=== PATIENT | male | born 1950 | race Caucasian/White ===

== ENCOUNTER 2016-05-05 23:33 | Emergency (ER) | payer MEDICARE ==
[~2016-05-05 23:33] MED LIST: Sodium Chloride 0.9% 1,000 ML BAG ONE
[2016-05-06] MEDS ORDERED: Ketorolac Tromethamine 60 MG/2 ML VIAL ONE (00:01)
[2016-05-06] MEDS ORDERED: Ondansetron HCl/PF 4 MG/2 ML Vial ONE (00:01)
[2016-05-06 00:02] LABS: #Basophils 0.1 thou/uL (0.0-0.2); #Eosinphils 0.2 thou/uL (0.0-0.7); #Lymphocytes 1.5 thou/uL (1.20-3.40); #Monocytes 0.5 thou/uL (0.11-0.59); #Neutrophils 6.9 thou/uL (1.40-6.50); %Basophils 0.7 % (0.0-1.0); %Eosinophils 2.7 % (0.0-10.0); %Monocytes 5.8 % (0.0-10.0); %Neutrophils 74.8 % (42.0-75.0); Hemoglobin 13.2 g/dL (14.0-18.0); Mean Corpuscular HGB CONC 35.5 g/dL (32.0-36.0); Mean Corpuscular Volume 87.5 fl (80.0-94.0); Mean Platelet Volume 6.4 fL (7.4-10.4); Platelet Count 216 thou/uL (130-400); RBC Distribution Width 11.4 % (11.5-14.5); Red Blood Cell (RBC) Count 4.27 mill/uL (4.70-6.10); White Blood Cell (WBC) Count 9.2 thou/uL (4.8-10.8)
[2016-05-06 00:07] LABS: Bilirubin Negative (Negative); Blood, Urine Moderate (Negative); Glucose, Urine (Dipstick) Negative (Negative); Leukocyte Negative (Negative); Nitrite Negative (Negative); Protein, Urine (Dipstick) Negative (Neg-Trace); Urobilinogen 0.2 mg/dL (0.2-1.0)
[2016-05-06 00:11] LABS: Clarity Hazy (Clear)
[2016-05-06 00:12] LABS: Bacteria/HPF Rare-Few HPF (None Seen); RBC/HPF 21-50 HPF (0-3); Specific Gravity, Urine 1.024 (1.002-1.036); WBC/HPF 0-3 HPF (0-3)
[2016-05-06 00:17] LABS: ALT (SGPT) 37 U/L (0-55); AST (SGOT) 23 U/L (5-34); Albumin 4.1 g/dL (3.4-4.8); Alkaline Phosphatase 75 U/L (40-150); Amylase 31 U/L (25-125); Anion Gap 16 mmol/L (10-20); BUN (Urea Nitrogen) 14 mg/dL (8.4-25.7); Bilirubin, Total 0.3 mg/dL (0.2-1.2); Calc. Creatinine Clearance 0 mL/min (70-130); Calcium 9.2 mg/dL (7.8-10.44); Carbon Dioxide 25 mmol/L (23-31); Chloride 102 mmol/L (98-107); Estimated GFR-MDRD 59; Globulin 3.1 g/dL (2.4-3.5); Glucose 138 mg/dL (80-115); Lipase 12 U/L (8-78); Potassium 4.1 mmol/L (3.5-5.1); Protein, Total 7.2 g/dL (5.8-8.1); Sodium 139 mmol/L (136-145)
[2016-05-06] MEDS ORDERED: Lorazepam 2 MG/ML VIAL ONE (01:13)
--- NOTE | 2016-05-06 02:24 | ERRECORD ---
[facility] EMERGENCY RECORD HPI ABDOMINAL PAIN (23:59 LLDO) CHIEF COMPLAINT: Patient presents for evaluation of abdominal pain, Patient presents for evaluation of see triage note. pain in llq was sudden and severe from the outset. nausea but no vomiting. rad up the flank some. no diarrhea. had normal bm earlier today. no trauma. no personal or family hx of k. stones. HISTORIAN: History provided by patient, History provided by patient's spouse. LOCATION MALE: Symptoms are localized, Radiation, No migration of pain. QUALITY: Pain is dull in nature, described as aching, described as cramping, described as BECOMES SHARP WITH MOVEMENT OR PALPATION. SEVERITY: Maximum severity of symptoms severe, Currently symptoms are severe. TIME COURSE: Sudden onset of symptoms, Symptoms are constant, There has been no change in the patient's symptoms over time. ASSOCIATED WITH: No associated symptoms, Associated with loss of appetite, Associated with nausea, No associated urinary tract infection signs or symptoms. RELIEVED BY: Patient's condition relieved by nothing. EXACERBATED BY: Patient's condition exacerbated by movement, Patient's condition exacerbated by walking, Patient's condition exacerbated by PALPATION. RISK FACTORS MALE: Testicular torsion risk factors, not applicable for this patient, Abdominal aortic aneurysm risk factors, include age over 40 years, Coronary artery disease risk factors, include hypertension. ROS CONSTITUTIONAL: Historian reports fatigue. (SatMay 06, 2016 00:05 LLDO) EYES: Negative eye review of systems, Historian denies eye pain, denies eye redness, denies eye discharge. ([place] May 06, 2016 00:10 LLDO) ENT: Negative ears, nose, throat review of systems, Historian denies otalgia, denies rhinorrhea, denies sinus pain, denies sore throat. (SatMay 06, 2016 00:10 LLDO) CARDIOVASCULAR: Negative cardiovascular review of systems, Historian denies chest pain, no radiation, Historian denies diaphoresis, denies paroxysmal nocturnal dyspnea, denies syncope. (SatMay 06, 2016 00:10 LLDO) RESPIRATORY: Negative respiratory review of systems, Historian denies cough, denies shortness of breath, denies sputum. ([place] May 06, 2016 00:10 LLDO) GI: Historian reports abdominal pain, reports anorexia, reports appetite changes, denies constipation, denies diarrhea, denies hematemesis, denies hematochezia, denies jaundice, denies melena, reports nausea, denies stool changes, denies vomiting. (SatMay 06, 2016 &a-1R&a+25V*p+0X*x5362J*c202B*c15G*c2P*p-0X&a-25V&a+1R Name: Giovanni Hairston : 1950 M66 MedRec: [id number] AcctNum: [id number] Prepared: SatMay 06, 2016 18:53 by Interface Page 1 of 5 pMD [facility] EMERGENCY RECORD 00:05 LLDO) GENITOURINARY MALE: Negative genitourinary review of systems. (SatMay 06, 2016 00:05 LLDO) MUSCULOSKELETAL: Negative musculoskeletal review of systems, Historian denies arthralgias, denies fall, denies injury, denies myalgias. (SatMay 06, 2016 00:10 LLDO) NEUROLOGIC: Negative neurologic review of systems, Historian denies confusion, denies focal weakness, denies mental status changes, denies sensory changes. (SatMay 06, 2016 00:10 LLDO) HEMO/LYMPHATIC: Normal hematologic/lymphatic system review, Historian denies abnormal blood clotting, denies gum bleeding, denies petechiae. (SatMay 06, 2016 00:10 LLDO) ALLERGIC/IMMUNOLOGIC: Normal allergy/immunologic system review, Historian denies eczema, denies environmental allergies, denies food allergies. (SatMay 06, 2016 00:10 LLDO) PSYCHIATRIC: Negative psychiatric review of systems, Historian denies alcohol abuse, denies anxiety, denies depression, denies drug abuse, denies hallucinations. (SatMay 06, 2016 00:10 LLDO) NOTES: All systems reviewed, negative except as described above. (SatMay 06, 2016 00:05 LLDO) PAST MEDICAL HISTORY MEDICAL HISTORY: Notes: chronic back pain. (SatMay 06, 2016 01:02 JDEA) MALE SURGICAL HISTORY: back surgery x 13. (SatMay 06, 2016 01:02 JDEA) PSYCHIATRIC HISTORY: No previous psychiatric history. (SatMay 06, 2016 01:02 JDEA) SOCIAL HISTORY: Patient denies alcohol use, Patient denies drug use, Patient has no smoking history, Lives at home, with family. (SatMay 06, 2016 01:02 JDEA) NOTES: Nursing records reviewed, Agree with nursing records, Medication list reviewed. (SatMay 06, 2016 00:10 LLDO) KNOWN ALLERGIES codeine CURRENT MEDICATIONS morphine: TABLET, EXTENDED RELEASE : Strength - 15 mg : ORAL Patient Dose: 15 mg Oral 3 times a day. (23:53 JDEA) gabapentin: CAPSULE : Strength - 300 mg : ORAL Patient Dose: 1 tab(s) Oral 2 times a day (before meals). (23:54 JDEA) Champlain: TABLET : Strength - 7.5 mg-325 mg : ORAL Patient Dose: 1 tab(s) Oral every 8 hours PRN. (23:54 JDEA) VITAL SIGNS &a-1R&a+25V*p+0X*g7193R*c202B*c15G*c2P*p-0X&a-25V&a+1R Name: Giovanni Hairston : 1950 M66 MedRec: [id number] AcctNum: [id number] Prepared: SatMay 06, 2016 18:53 by Interface Page 2 of 5 pMD [facility] EMERGENCY RECORD VITAL SIGNS: BP: 176/66, Pulse: 63, Resp: 20, Pain: 10, O2 sat: 94 on Room Air, Time: 05/05/2016 23:39. (23:39 JDEA) BP: 176/66, Pulse: 63, Resp: 20, Temp: 98 (Oral), Pain: 10, O2 sat: 94 on Room Air, Time: 05/05/2016 23:55. (23:55 JDEA) BP: 172/68, Pulse: 68, Resp: 16, Pain: 4, O2 sat: 98 on Room Air, Time: 05/06/2016 01:25. (SatMay 06, 2016 01:25 JDEA) PHYSICAL EXAM CONSTITUTIONAL: Vital Signs Reviewed, Patient afebrile, Pulse normal, Blood pressure, BP ELEVATED, Respiratory rate normal, Patient appears non toxic, Patient appears, in severe pain distress, Patient alert and oriented to person, place and time, Nursing notes reviewed, pt writhing about and moaning loudly. laid down in the front yard and didn't want to move. now refusing to move at all for radiology. (SatMay 06, 2016 00:06 LLDO) HEAD: Head exam normal, Head exam included findings of head atraumatic, normocephalic. (SatMay 06, 2016 00:10 LLDO) EYES: Eye exam normal, Eye exam included findings of eyelids normal to inspection, Pupils equally round and reactive to light, Extraocular muscles intact. (SatMay 06, 2016 00:10 LLDO) ENT: ENT exam normal, Ear exam normal, Nose exam normal. (SatMay 06, 2016 00:10 LLDO) NECK: Neck exam normal, Neck exam included findings of normal range of motion, Trachea midline, no meningeal signs, no tenderness. (SatMay 06, 2016 00:10 LLDO) RESPIRATORY CHEST: Respiratory and chest exam normal, Respiratory exam included findings of no respiratory distress, Breath sounds clear, Chest exam included findings of chest movement symmetrical, Chest expansion equal. (SatMay 06, 2016 00:10 LLDO) CARDIOVASCULAR: Cardiovascular assessment normal, Cardiovascular exam included findings of heart rate regular rate and rhythm, Heart sounds normal. (SatMay 06, 2016 00:10 LLDO) ABDOMEN MALE: Abdominal exam included findings of abdomen tender, to the left lower quadrant, into left flank, Bowel sounds normal, Liver with, Splenomegaly present, no distension, no mass, no pulsatile masses, McBurney's point non-tender, no peritoneal signs. (SatMay 06, 2016 00:06 LLDO) BACK: Back exam normal, Back exam included findings of normal inspection, range of motion normal. (SatMay 06, 2016 00:10 LLDO) UPPER EXTREMITY: Upper extremity exam normal, Upper extremity exam included findings of inspection normal, Range of motion normal. (SatMay 06, 2016 00:10 LLDO) LOWER EXTREMITY: Lower extremity exam normal, Lower extremity exam included findings of inspection normal, Range of motion normal. (SatMay 06, 2016 00:10 LLDO) NEURO: Neuro exam normal, Neuro exam findings include patient oriented to person, place and time, Speech normal, Patricia coma scale 15. ([place] May 06, 2016 00:10 LLDO) &a-1R&a+25V*p+0X*z0710X*c202B*c15G*c2P*p-0X&a-25V&a+1R Name: Giovanni Hairston : 1950 M66 MedRec: [id number] AcctNum: [id number] Prepared: SatMay 06, 2016 18:53 by Interface Page 3 of 5 pMD [facility] EMERGENCY RECORD SKIN: Skin exam normal, Skin exam included findings of skin warm, dry, and normal in color, no rash. (SatMay 06, 2016 00:10 LLDO) PSYCHIATRIC: Psychiatric exam normal, Psychiatric exam included findings of patient oriented to person place and time, Normal affect, Judgment normal. (SatMay 06, 2016 00:10 LLDO) MEDICATION ADMINISTRATION SUMMARY Drug Name: Duramorph (PF), Dose Ordered: 4 mg, Route: IV Push, Status: Given, Time: 01:25 05/06/2016, Drug Name: Ativan injection, Dose Ordered: 0.5 mg, Route: IV Push, Status: Given, Time: 01:24 05/06/2016, Drug Name: Duramorph (PF), Dose Ordered: 4 mg, Route: IV Push, Status: Given, Time: 01:09 05/06/2016, Drug Name: Toradol injection, Dose Ordered: 30 mg, Route: IV Push, Status: Given, Time: 00:09 05/06/2016, Drug Name: *sodium chloride 0.9 % intravenous, Dose Ordered: 1 L, Route: IV Fluid Infusion, Status: Given, Time: 00:08 05/06/2016, Drug Name: Zofran intravenous, Dose Ordered: 8 mg, Route: IV Push, Status: Given, Time: 00:06 05/06/2016, *Additional information available in notes, Detailed record available in Medication Service section. DOCTOR NOTES TEXT: pain "slightly better" after toradol but still very uncomfortable and asking for more relief. (SatMay 06, 2016 00:28 LLDO) pt finally relatively pain free and has declined my offer of admission or transfer. wants to go home and see if he can manage at home. if not, will come back or go straight to [facility] for f/u with urologist. (SatMay 06, 2016 01:54 LLDO) PROBLEM LIST No recorded problems DIAGNOSIS (SatMay 06, 2016 01:57 LLDO) FINAL: PRIMARY: Ureteral stone and colic, left. PRESCRIPTION (SatMay 06, 2016 01:59 LLDO) Champlain: TABLET : 10 mg-325 mg : ORAL : Quantity: 1 Unit: tab(s) Route: ORAL Schedule: every 4 hours prn Dispense: 24 Unit: tab(s) May substitute. Refills: No Refills . Zofran ODT: TABLET, RAPID DISSOLVE : 4 mg : ORAL : Quantity: 1-2 Unit: tab(s) Route: ORAL Schedule: every 6 hours PRN Dispense: 12 Unit: tab(s) May substitute. Refills: 2 . NOTES: DISSOLVE UNDER TONGUE. DISPOSITION &a-1R&a+25V*p+0X*[id number]*c202B*c15G*c2P*p-0X&a-25V&a+1R Name: Giovanni Hairston : 1950 M66 MedRec: [id number] AcctNum: [id number] Prepared: SatMay 06, 2016 18:53 by Interface Page 4 of 5 pMD [facility] EMERGENCY RECORD PATIENT: Disposition Type: Discharge, Disposition: *Discharge Home. (SatMay 06, 2016 01:57 LLDO) Patient left the department. (SatMay 06, 2016 02:18 JACQUES) Archibald: JACQUES=FRANK Valadez, Peyton CONKLIN=MD Patterson Lloyd &a-1R&a+25V*p+0X*a2359K*c202B*c15G*c2P*p-0X&a-25V&a+1R Name: Giovanni Hairston : 1950 M66 MedRec: [id number] AcctNum: [id number] Prepared: SatMay 06, 2016 18:53 by Interface Page 5 of 5 pMD [facility]
--- NOTE | 2016-05-06 02:29 | PICIS ---
[facility] EMERGENCY RECORD TRIAGE (23:40 JDEA) TRIAGE NOTES: pt in for complaints of left lower quadrant pain, states one hour onset. (23:40 JDEA) PATIENT: NAME: Giovanni Hairston, AGE: 65, GENDER: male, : Mon 1950, TIME OF GREET: Sat May 05, 2016 23:34, PREFERRED LANGUAGE: Vietnamese, ETHNICITY: Not or , ECODE BILLING MAP: [facility], SSN: [id number], Zip Code: [address], KG WEIGHT: 104.33 (est.), PHONE: , , , PERSON ID: [id number], PCP: Head. (23:40 JDEA) COMPLAINT: Abdominal Pain. (23:40 JDEA) ADMISSION: URGENCY: 3 Urgent, ADMISSION SOURCE: Home, TRANSPORT: Walk-in, BED: TRIAGE. (23:40 JDEA) IMMUNIZATIONS: Flu vaccine up to date, Tetanus immunization up to date, Pneumococcal vaccine not up to date. (Maisha May 06, 2016 01:02 JDEA) TRIAGE SCREENING: Patient denies suicidal ideation, Patient denies presence of domestic violence. (Maisha May 06, 2016 01:02 JDEA) PROVIDERS: TRIAGE NURSE: Peyton Valadez RN. (23:40 JDEA) VITAL SIGNS: BP 176/66, Pulse 63, Resp 20, Pain 10, O2 Sat 94, on Room Air, Time 05/05/2016 23:39. (23:39 JDEA) KNOWN ALLERGIES codeine CURRENT MEDICATIONS morphine: TABLET, EXTENDED RELEASE : Strength - 15 mg : ORAL Patient Dose: 15 mg Oral 3 times a day. (23:53 JDEA) gabapentin: CAPSULE : Strength - 300 mg : ORAL Patient Dose: 1 tab(s) Oral 2 times a day (before meals). (23:54 JDEA) Kelso: TABLET : Strength - 7.5 mg-325 mg : ORAL Patient Dose: 1 tab(s) Oral every 8 hours PRN. (23:54 JDEA) VITAL SIGNS VITAL SIGNS: BP: 176/66, Pulse: 63, Resp: 20, Pain: 10, O2 sat: 94 on Room Air, Time: 05/05/2016 23:39. (23:39 JDEA) BP: 176/66, Pulse: 63, Resp: 20, Temp: 98 (Oral), Pain: 10, O2 sat: 94 on Room Air, Time: 05/05/2016 23:55. (23:55 JDEA) BP: 172/68, Pulse: 68, Resp: 16, Pain: 4, O2 sat: 98 on Room Air, Time: 05/06/2016 01:25. (Maisha May 06, 2016 01:25 JDEA) NURSING ASSESSMENT: ABDOMEN (23:45 JDEA) CONSTITUTIONAL: Complex assessment performed, Patient arrives ambulatory, Unsteady gait, Assistance to cart, History obtained from patient, Patient appears, in distress due to pain, uncomfortable, Patient cooperative, Patient &a-1R&a+25V*p+0X*g7436X*c202B*c15G*c2P*p-0X&a-25V&a+1R Name: Giovanni Hairston : 1950 M66 MedRec: [id number] AcctNum: [id number] Prepared: Maisha May 06, 2016 18:53 by Interface Page 1 of 13 pMD [facility] EMERGENCY RECORD alert, Oriented to person, place and time, Skin warm, Skin dry, Skin, pale in color, Mucous membranes pink, Mucous membranes moist, Patient complains of abdominal pain, pt states appx one hour ago, he began to have lower left quadrant pain. PAIN: aching pain, to the left lower quadrant, constant, on a scale 0-10 patient rates pain as 10. ABDOMEN: Abdomen assessment findings include abdomen symmetrical, Abdomen soft, tender, to the left lower quadrant, Associated with nausea, no associated vomiting, no associated diarrhea, no associated constipation, Date of last bowel movement: 05/05/2016 23:52. GENITOURINARY MALE: Male genitourinary assessment findings include external genitalia normal. NOTES: Patient tolerated procedure well. SAFETY: Side rails up, Cart/Stretcher in lowest position, Family at bedside, Call light within reach, Hospital ID band on. NURSING PROCEDURE: GENERAL SERVICE TECHNICIAN (23:40 JDEA) PATIENT IDENTIFIER: Patient actively involved in identification process, Patient's identity verified by hospital ID bracelet. GENERAL SERVICE TECHNICIAN: Cardiac monitoring indicated for er indication, Patient placed on court monitor, Patient placed on non-invasive blood pressure monitor, Patient placed on continuous pulse oximetry. FOLLOW-UP: After procedure, alarms set and on. NOTES: Patient tolerated procedure well. SAFETY: Side rails up, Cart/Stretcher in lowest position, Family at bedside, Call light within reach, Hospital ID band on. NURSING PROCEDURE: DISCHARGE NOTE (Maisha May 06, 2016 02:15 JDEA) DISCHARGE: Patient discharged to home, ambulating with assistance, family driving, accompanied by //partner, Summary of Care printed/ provided, Patient requested and was provided an electronic copy of Discharge Instructions, Transition record given to patient, Discharge instructions given to patient, Simple or moderate discharge teaching performed, Prescriptions given and instructions on side effects given, Above person(s) verbalized understanding of discharge instructions and follow-up care, Patient treated and evaluated by physician. BELONGINGS: Belongings and valuables with patient at time of discharge include:, Belongings remain with patient. NURSING PROCEDURE: EKG CHART (Maisha May 06, 2016 00:35 JDEA) PATIENT IDENTIFIER: Patient actively involved in identification process, Patient's identity verified by [facility] ID bracelet. EKG: EKG indicated for er indication, 12 lead EKG performed on the left chest, done by Rey, EKG. FOLLOW-UP: After procedure, EKG for interpretation given to Dr. MD Patterson. &a-1R&a+25V*p+0X*x0304J*c202B*c15G*c2P*p-0X&a-25V&a+1R Name: Giovanni Hairston : 1950 M66 MedRec: [id number] AcctNum: [id number] Prepared: Maisha May 06, 2016 18:53 by Interface Page 2 of 13 D [facility] EMERGENCY RECORD NOTES: Patient tolerated procedure well. SAFETY: Side rails up, Cart/Stretcher in lowest position, Family at bedside, Call light within reach, Hospital ID band on. NURSING PROCEDURE: IV (23:40 JDEA) PATIENT IDENITIFIER: Patient actively involved in identification process, Patient's identity verified by [facility] ID bracelet. IV SITE 1: IV therapy indicated for hydration, IV therapy indicated for medication administration, IV established, to the right antecubital, using an 18 gauge catheter, in one attempt, Saline lock established, Flushed with normal saline (mls): 10 mls, Labs drawn at time of placement, labeled in the presence of the patient and sent to lab, Notes: initiated by Lidia MARIE. FOLLOW-UP SITE 1: After procedure, 2x3 ensure dressing applied, After procedure, no drainage at IV site, After procedure, no swelling at IV site, After procedure, no redness at IV site. NOTES: Patient tolerated procedure well. SAFETY: Side rails up, Cart/Stretcher in lowest position, Family at bedside, Call light within reach, Hospital ID band on. NURSING PROCEDURE: NURSE NOTES (23:43 JDEA) NURSES NOTES: Notes: ER MD made aware of patient status at this time. family at bedside. NURSING PROCEDURE: OXYGEN THERAPY ([place] May 06, 2016 01:48 JDEA) PATIENT IDENTIFIER: Patient actively involved in identification process, Patient's identity verified by hospital ID bracelet. OXYGEN THERAPY: Oxygen therapy indicated for desaturation, Oxygen saturation 89%, by adult/pediatric oxisensor, single pulse oximetry reading, 2L oxygen given, via nasal cannula applied, Applied by Rey. FOLLOW-UP: After procedure, oxygen saturation 98%. NOTES: Patient tolerated procedure well. SAFETY: Side rails up, Cart/Stretcher in lowest position, Family at bedside, Call light within reach, Hospital ID band on. NURSING PROCEDURE: URINE COLLECTION (23:41 JDEA) PATIENT IDENTIFIER: Patient actively involved in identification process, Patient's identity verified by hospital ID bracelet. URINE COLLECTION MALE: Urine collection indicated for er indication, Notes: urinal to patient. NOTES: Patient tolerated procedure well. SAFETY: Side rails up, Cart/Stretcher in lowest position, Family at bedside, Call light within reach, Hospital ID band on. ORDER DETAILS Order Name: Amylase, Status: Active, Time: 23:55 05/05/2016, User: RUBIN, - Ordered for: MD Leonardo, Blake, &a-1R&a+25V*p+0X*w7135S*c202B*c15G*c2P*p-0X&a-25V&a+1R Name: Giovanni Hairston : 1950 M66 MedRec: [id number] AcctNum: [id number] Prepared: Maisha May 06, 2016 18:53 by Interface Page 3 of 13 D [facility] EMERGENCY RECORD - Entered by: MD Patterson Lloyd - Sat May 05, 2016 23:55, - Quantity: 1, Order Name: GENERAL SERVICE TECHNICIAN ED, Status: Done, Time: 23:57 05/05/2016, User: JACQUES, - Ordered for: MD Patterson Lloyd, - Entered by: MD Patterson Lloyd - Sat May 05, 2016 23:55, - Quantity: 1, Order Name: CBC with Differential, Status: Active, Time: 23:55 05/05/2016, User: RUBIN, - Ordered for: MD Patterson Lloyd, - Entered by: MD Patterson Lloyd - Sat May 05, 2016 23:55, - Quantity: 1, Order Name: Comprehensive Metabolic Panel, Status: Active, Time: 23:55 05/05/2016, User: RUBIN, - Ordered for: MD Patterson Lloyd, - Entered by: MD Patterson Lloyd - Sat May 05, 2016 23:55, - Quantity: 1, Order Name: CRP (Inflamatory), Status: Active, Time: 23:56 05/05/2016, User: RUBIN, - Ordered for: MD Patterson Lloyd, - Entered by: MD Patterson Lloyd - Sat May 05, 2016 23:56, - Quantity: 1, Order Name: CT Stone Protocol, Status: Active, Time: 23:55 05/05/2016, User: LLDO, - Ordered for: MD Patterson Lloyd, - Entered by: MD Patterson Lloyd - Sat May 05, 2016 23:55, - Quantity: 1, Order Name: Culture, Urine, Status: Active, Time: 23:55 05/05/2016, User: LLDO, - Ordered for: MD Patterson Lloyd, - Entered by: MD Patterson Lloyd - Sat May 05, 2016 23:55, - Quantity: 1, Order Name: EKG 12 Lead in Emergency Room, Status: Active, Time: 23:55 05/05/2016, User: LL, - Ordered for: MD Patterson Lloyd, - Entered by: MD Patterson Lloyd - Sat May 05, 2016 23:55, - Quantity: 1, Order Name: ERRT Oxygen Usage ER, Status: Active, Time: 01:48 05/06/2016, User: JACQUES, - Ordered for: MD Patterson Lloyd, - Entered by: FRANK Valadze, Peyton [facility] May 06, 2016 01:48, - Quantity: 1, Order Name: ERRT Pulse Oximeter ER, Status: Active, Time: 01:48 05/06/2016, User: JACQUES, - Ordered for: MD Patterson Lloyd, - Entered by: FRANK Valadez, Peyton [facility] May 06, 2016 01:48, - Quantity: 1, Order Name: Lipase, Status: Active, Time: 23:55 05/05/2016, User: RUBIN, - Ordered for: MD Patterson Lloyd, - Entered by: MD Patterson Lloyd - Sat May 05, 2016 23:55, &a-1R&a+25V*p+0X*s1220Y*c202B*c15G*c2P*p-0X&a-25V&a+1R Name: Giovanni Hairston : 1950 M66 MedRec: [id number] AcctNum: [id number] Prepared: Maisha May 06, 2016 18:53 by Interface Page 4 of 13 D [facility] EMERGENCY RECORD - Quantity: 1, Order Name: SALINE LOCK, Status: Done, Time: 23:57 05/05/2016, User: JKATHYA, - Ordered for: MD Patterson Lloyd, - Entered by: MD Patterson Lloyd - Sat May 05, 2016 23:55, - Quantity: 1, Order Name: Urinalysis w/ Rflx Microscopic, Status: Active, Time: 23:55 05/05/2016, User: LLDO, - Ordered for: MD Patterson Lloyd, - Entered by: MD Patterson Lloyd - Sat May 05, 2016 23:55, - Quantity: 1, Order Name: XR Chest 1 View Portable, Status: Active, Time: 23:55 05/05/2016, User: LLDO, - Ordered for: MD Patterson Lloyd, - Entered by: MD Patterson Lloyd - [facility] May 05, 2016 23:55, - Quantity: 1. MEDICATION ADMINISTRATION SUMMARY Drug Name: Duramorph (PF), Dose Ordered: 4 mg, Route: IV Push, Status: Given, Time: 01:25 05/06/2016, Drug Name: Ativan injection, Dose Ordered: 0.5 mg, Route: IV Push, Status: Given, Time: 01:24 05/06/2016, Drug Name: Duramorph (PF), Dose Ordered: 4 mg, Route: IV Push, Status: Given, Time: 01:09 05/06/2016, Drug Name: Toradol injection, Dose Ordered: 30 mg, Route: IV Push, Status: Given, Time: 00:09 05/06/2016, Drug Name: *sodium chloride 0.9 % intravenous, Dose Ordered: 1 L, Route: IV Fluid Infusion, Status: Given, Time: 00:08 05/06/2016, Drug Name: Zofran intravenous, Dose Ordered: 8 mg, Route: IV Push, Status: Given, Time: 00:06 05/06/2016, *Additional information available in notes, Detailed record available in Medication Service section. MEDICATION SERVICE Ativan injection: Order: Ativan injection (lorazepam) - Dose: 0.5 mg : IV Push Schedule: Now Ordered by: Blake Patterson MD Entered by: Blake Patterson MD [place] May 06, 2016 01:07 , Acknowledged by: Peyton Valadez, FRANK [place] May 06, 2016 01:09 Documented as given by: Peyton Valadez, FRANK [place] May 06, 2016 01:24 Patient, Medication, Dose, Route and Time verified prior to administration. Amount given: 0.5mg, IV SITE #1 IVP, subsequent different medication, Slowly, Awake and alert- acceptable, Ordering Physician approved to Give, Connections checked prior to administration, Line traced prior to administration, Catheter placement confirmed via flush prior to administration, IV site without signs or symptoms of infiltration during medication administration, No swelling during &a-1R&a+25V*p+0X*v1938A*c202B*c15G*c2P*p-0X&a-25V&a+1R Name: Giovanni Hairston : 1950 M66 MedRec: [id number] AcctNum: [id number] Prepared: Maisha May 06, 2016 18:53 by Interface Page 5 of 13 pMD [facility] EMERGENCY RECORD administration, No drainage during administration, IV flushed after administration, Correct patient, time, route, dose and medication confirmed prior to administration, Patient advised of actions and side-effects prior to administration, Allergies confirmed and medications reviewed prior to administration, Patient in position of comfort, Side rails up, Cart in lowest position, Family at bedside, Call light in reach. Duramorph (PF): Order: Duramorph (PF) (morphine sulfate/preservative free) - Dose: 4 mg : IV Push Schedule: Now Ordered by: Blake Patterson MD Entered by: MD Maisha Patrick May 06, 2016 00:28 , Acknowledged by: FRANK Junior May 06, 2016 00:37 Documented as given by: FRANK Junior May 06, 2016 01:09 Patient, Medication, Dose, Route and Time verified prior to administration. Amount given: 4mg, IV SITE #1 IVP, subsequent different medication, Slowly, Awake and alert- acceptable, Ordering Physician approved to Give, Connections checked prior to administration, Line traced prior to administration, Catheter placement confirmed via flush prior to administration, IV site without signs or symptoms of infiltration during medication administration, No swelling during administration, No drainage during administration, IV flushed after administration, Correct patient, time, route, dose and medication confirmed prior to administration, Patient advised of actions and side-effects prior to administration, Allergies confirmed and medications reviewed prior to administration, Patient in position of comfort, Side rails up, Cart in lowest position, Family at bedside, Call light in reach. Duramorph (PF): Order: Duramorph (PF) (morphine sulfate/preservative free) - Dose: 4 mg : IV Push Schedule: Now Ordered by: Blake Patterson MD Entered by: MD Maisha Patrick May 06, 2016 01:06 , Acknowledged by: FRANK Junior May 06, 2016 01:09 Documented as given by: Peyton Valadez RN [place] May 06, 2016 01:25 Patient, Medication, Dose, Route and Time verified prior to administration. Amount given: 4mg, IV SITE #1 IVP, subsequent different medication, Slowly, Awake and alert- acceptable, Ordering Physician approved to Give, Connections checked prior to administration, Line traced prior to administration, Catheter placement confirmed via flush prior to administration, IV site without signs or symptoms of infiltration during medication administration, No swelling during administration, No drainage during administration, IV flushed after administration, Correct patient, time, route, dose and medication confirmed prior to administration, Patient advised of actions and side-effects prior to administration, Allergies confirmed and medications reviewed prior to administration, Patient in position of comfort, Side rails up, Cart in lowest position, Family at bedside, Call light in reach. sodium chloride 0.9 % intravenous: Order: sodium chloride 0.9 % &a-1R&a+25V*p+0X*o4346M*c202B*c15G*c2P*p-0X&a-25V&a+1R Name: Giovanni Hairston : 1950 M66 MedRec: [id number] AcctNum: [id number] Prepared: Maisha May 06, 2016 18:53 by Interface Page 6 of 13 pMD [facility] EMERGENCY RECORD intravenous (0.9 % sodium chloride) - Dose: 1 L : IV Fluid Infusion Notes: (Bolus) after bolus, lock Ordered by: Blake Patterson MD Entered by: Blake Patterson MD [facility] May 05, 2016 23:58 , Acknowledged by: FRANK Junior May 06, 2016 00:00 Documented as given by: FRANK Junior May 06, 2016 00:08 Patient, Medication, Dose, Route and Time verified prior to administration. Amount given: 1L, IV SITE #1 IV fluids established for hydration, Connections checked prior to administration, Line traced prior to administration, Catheter placement confirmed via flush prior to administration, IV site without signs or symptoms of infiltration during medication administration, No swelling during administration, No drainage during administration, IV flushed after administration, Correct patient, time, route, dose and medication confirmed prior to administration, Patient advised of actions and side-effects prior to administration, Allergies confirmed and medications reviewed prior to administration, Patient in position of comfort, Side rails up, Cart in lowest position, Family at bedside, Call light in reach. : Follow Up : Response assessment performed, No signs or symptoms of allergic reaction noted, _IV SITE #1:_, IV fluid infusion discontinued, on SatMay 06, 2016 02:15, Total fluid hydration time IV site 1 2 hours, 10 minutes, ., Total amount infused: 1L. ([place] May 06, 2016 02:18 JDEA) Toradol injection: Order: Toradol injection (ketorolac tromethamine) - Dose: 30 mg : IV Push Schedule: Now Ordered by: Blake Patterson MD Entered by: Blake Patterson MD [facility] May 05, 2016 23:57 , Acknowledged by: Peyton Valadez RN [place] May 06, 2016 00:00 Documented as given by: Peyton Valadez RN [place] May 06, 2016 00:09 Patient, Medication, Dose, Route and Time verified prior to administration. Amount given: 30mg, IV SITE #1 IVP, subsequent different medication, Slowly, Connections checked prior to administration, Line traced prior to administration, Catheter placement confirmed via flush prior to administration, IV site without signs or symptoms of infiltration during medication administration, No swelling during administration, No drainage during administration, IV flushed after administration, Correct patient, time, route, dose and medication confirmed prior to administration, Patient advised of actions and side-effects prior to administration, Allergies confirmed and medications reviewed prior to administration, Patient in position of comfort, Side rails up, Cart in lowest position, Family at bedside, Call light in reach. Zofran intravenous: Order: Zofran intravenous (ondansetron HCl) - Dose: 8 mg : IV Push Schedule: Now Ordered by: Blake Patterson MD Entered by: Blake Patterson MD [facility] May 05, 2016 23:57 , &a-1R&a+25V*p+0X*w5508P*c202B*c15G*c2P*p-0X&a-25V&a+1R Name: Giovanni Hairston : 1950 M66 MedRec: [id number] AcctNum: [id number] Prepared: [place] May 06, 2016 18:53 by Interface Page 7 of 13 pMD [facility] EMERGENCY RECORD Acknowledged by: FRANK Junior May 06, 2016 00:00 Documented as given by: FRANK Junior May 06, 2016 00:06 Patient, Medication, Dose, Route and Time verified prior to administration. Amount given: 8mg, IV SITE #1 IVP, initial medication, Slowly, Connections checked prior to administration, Line traced prior to administration, Catheter placement confirmed via flush prior to administration, IV site without signs or symptoms of infiltration during medication administration, No swelling during administration, No drainage during administration, IV flushed after administration, Correct patient, time, route, dose and medication confirmed prior to administration, Patient advised of actions and side-effects prior to administration, Allergies confirmed and medications reviewed prior to administration, Patient in position of comfort, Side rails up, Cart in lowest position, Family at bedside, Call light in reach. HPI ABDOMINAL PAIN (23:59 LLDO) CHIEF COMPLAINT: Patient presents for evaluation of abdominal pain, Patient presents for evaluation of see triage note. pain in llq was sudden and severe from the outset. nausea but no vomiting. rad up the flank some. no diarrhea. had normal bm earlier today. no trauma. no personal or family hx of k. stones. HISTORIAN: History provided by patient, History provided by patient's spouse. LOCATION MALE: Symptoms are localized, Radiation, No migration of pain. QUALITY: Pain is dull in nature, described as aching, described as cramping, described as BECOMES SHARP WITH MOVEMENT OR PALPATION. SEVERITY: Maximum severity of symptoms severe, Currently symptoms are severe. TIME COURSE: Sudden onset of symptoms, Symptoms are constant, There has been no change in the patient's symptoms over time. ASSOCIATED WITH: No associated symptoms, Associated with loss of appetite, Associated with nausea, No associated urinary tract infection signs or symptoms. RELIEVED BY: Patient's condition relieved by nothing. EXACERBATED BY: Patient's condition exacerbated by movement, Patient's condition exacerbated by walking, Patient's condition exacerbated by PALPATION. RISK FACTORS MALE: Testicular torsion risk factors, not applicable for this patient, Abdominal aortic aneurysm risk factors, include age over 40 years, Coronary artery disease risk factors, include hypertension. ROS CONSTITUTIONAL: Historian reports fatigue. (Maisha May 06, 2016 00:05 LLDO) EYES: Negative eye review of systems, Historian denies eye pain, denies eye redness, denies eye discharge. (SatMay 06, 2016 00:10 &a-1R&a+25V*p+0X*y0448P*c202B*c15G*c2P*p-0X&a-25V&a+1R Name: Giovanni Hairston : 1950 M66 MedRec: [id number] AcctNum: [id number] Prepared: SatMay 06, 2016 18:53 by Interface Page 8 of 13 pMD [facility] EMERGENCY RECORD LLDO) ENT: Negative ears, nose, throat review of systems, Historian denies otalgia, denies rhinorrhea, denies sinus pain, denies sore throat. (SatMay 06, 2016 00:10 LLDO) CARDIOVASCULAR: Negative cardiovascular review of systems, Historian denies chest pain, no radiation, Historian denies diaphoresis, denies paroxysmal nocturnal dyspnea, denies syncope. (SatMay 06, 2016 00:10 LLDO) RESPIRATORY: Negative respiratory review of systems, Historian denies cough, denies shortness of breath, denies sputum. (SatMay 06, 2016 00:10 LLDO) GI: Historian reports abdominal pain, reports anorexia, reports appetite changes, denies constipation, denies diarrhea, denies hematemesis, denies hematochezia, denies jaundice, denies melena, reports nausea, denies stool changes, denies vomiting. (SatMay 06, 2016 00:05 LLDO) GENITOURINARY MALE: Negative genitourinary review of systems. (SatMay 06, 2016 00:05 LLDO) MUSCULOSKELETAL: Negative musculoskeletal review of systems, Historian denies arthralgias, denies fall, denies injury, denies myalgias. (SatMay 06, 2016 00:10 LLDO) NEUROLOGIC: Negative neurologic review of systems, Historian denies confusion, denies focal weakness, denies mental status changes, denies sensory changes. (SatMay 06, 2016 00:10 LLDO) HEMO/LYMPHATIC: Normal hematologic/lymphatic system review, Historian denies abnormal blood clotting, denies gum bleeding, denies petechiae. (SatMay 06, 2016 00:10 LLDO) ALLERGIC/IMMUNOLOGIC: Normal allergy/immunologic system review, Historian denies eczema, denies environmental allergies, denies food allergies. (SatMay 06, 2016 00:10 LLDO) PSYCHIATRIC: Negative psychiatric review of systems, Historian denies alcohol abuse, denies anxiety, denies depression, denies drug abuse, denies hallucinations. (SatMay 06, 2016 00:10 LLDO) NOTES: All systems reviewed, negative except as described above. (SatMay 06, 2016 00:05 LLDO) PAST MEDICAL HISTORY MEDICAL HISTORY: Notes: chronic back pain. (SatMay 06, 2016 01:02 JDEA) MALE SURGICAL HISTORY: back surgery x 13. (SatMay 06, 2016 01:02 JDEA) PSYCHIATRIC HISTORY: No previous psychiatric history. (SatMay 06, 2016 01:02 JDEA) SOCIAL HISTORY: Patient denies alcohol use, Patient denies drug use, Patient has no smoking history, Lives at home, with family. (SatMay 06, 2016 01:02 JDEA) NOTES: Nursing records reviewed, Agree with nursing records, Medication list reviewed. (SatMay 06, 2016 00:10 LLDO) &a-1R&a+25V*p+0X*[id number]*c202B*c15G*c2P*p-0X&a-25V&a+1R Name: Giovanni Hairston : 1950 M66 MedRec: [id number] AcctNum: [id number] Prepared: SatMay 06, 2016 18:53 by Interface Page 9 of 13 pMD [facility] EMERGENCY RECORD PHYSICAL EXAM CONSTITUTIONAL: Vital Signs Reviewed, Patient afebrile, Pulse normal, Blood pressure, BP ELEVATED, Respiratory rate normal, Patient appears non toxic, Patient appears, in severe pain distress, Patient alert and oriented to person, place and time, Nursing notes reviewed, pt writhing about and moaning loudly. laid down in the front yard and didn't want to move. now refusing to move at all for radiology. (SatMay 06, 2016 00:06 LLDO) HEAD: Head exam normal, Head exam included findings of head atraumatic, normocephalic. (SatMay 06, 2016 00:10 LLDO) EYES: Eye exam normal, Eye exam included findings of eyelids normal to inspection, Pupils equally round and reactive to light, Extraocular muscles intact. (SatMay 06, 2016 00:10 LLDO) ENT: ENT exam normal, Ear exam normal, Nose exam normal. (SatMay 06, 2016 00:10 LLDO) NECK: Neck exam normal, Neck exam included findings of normal range of motion, Trachea midline, no meningeal signs, no tenderness. (SatMay 06, 2016 00:10 LLDO) RESPIRATORY CHEST: Respiratory and chest exam normal, Respiratory exam included findings of no respiratory distress, Breath sounds clear, Chest exam included findings of chest movement symmetrical, Chest expansion equal. (SatMay 06, 2016 00:10 LLDO) CARDIOVASCULAR: Cardiovascular assessment normal, Cardiovascular exam included findings of heart rate regular rate and rhythm, Heart sounds normal. (SatMay 06, 2016 00:10 LLDO) ABDOMEN MALE: Abdominal exam included findings of abdomen tender, to the left lower quadrant, into left flank, Bowel sounds normal, Liver with, Splenomegaly present, no distension, no mass, no pulsatile masses, McBurney's point non-tender, no peritoneal signs. ([place] May 06, 2016 00:06 LLDO) BACK: Back exam normal, Back exam included findings of normal inspection, range of motion normal. (SatMay 06, 2016 00:10 LLDO) UPPER EXTREMITY: Upper extremity exam normal, Upper extremity exam included findings of inspection normal, Range of motion normal. (SatMay 06, 2016 00:10 LLDO) LOWER EXTREMITY: Lower extremity exam normal, Lower extremity exam included findings of inspection normal, Range of motion normal. ([place] May 06, 2016 00:10 LLDO) NEURO: Neuro exam normal, Neuro exam findings include patient oriented to person, place and time, Speech normal, Patricia coma scale 15. (SatMay 06, 2016 00:10 LLDO) SKIN: Skin exam normal, Skin exam included findings of skin warm, dry, and normal in color, no rash. (SatMay 06, 2016 00:10 LLDO) PSYCHIATRIC: Psychiatric exam normal, Psychiatric exam included findings of patient oriented to person place and time, Normal affect, Judgment normal. ([place] May 06, 2016 00:10 LLDO) EVENTS &a-1R&a+25V*p+0X*r8886R*c202B*c15G*c2P*p-0X&a-25V&a+1R Name: Giovanni Hairston : 1950 M66 MedRec: [id number] AcctNum: [id number] Prepared: [place] May 06, 2016 18:53 by Interface Page 10 of 13 pMD [facility] EMERGENCY RECORD TRANSFER: Triage to Emergency Triage. ([facility] May 05, 2016 23:40 JDEA) Emergency Triage to Main ED -02. (23:40 JDEA) Removed from Emergency Main ED -02. ([place] May 06, 2016 02:18 JDEA) DOCTOR NOTES TEXT: pain "slightly better" after toradol but still very uncomfortable and asking for more relief. ([place] May 06, 2016 00:28 LLDO) pt finally relatively pain free and has declined my offer of admission or transfer. wants to go home and see if he can manage at home. if not, will come back or go straight to [facility] for f/u with urologist. ([place] May 06, 2016 01:54 LLDO) PROBLEM LIST No recorded problems DIAGNOSIS ([place] May 06, 2016 01:57 LLDO) FINAL: PRIMARY: Ureteral stone and colic, left. DISPOSITION PATIENT: Disposition Type: Discharge, Disposition: *Discharge Home. ([place] May 06, 2016 01:57 LLDO) Patient left the department. ([place] May 06, 2016 02:18 JDEA) INSTRUCTION ([place] May 06, 2016 02:00 LLDO) DISCHARGE: URETERAL STONE W COLIC. FOLLOWUP: Follow up with Primary Care Physician as needed. SPECIAL: 3.5mm stone in proximal left ureter Follow-up with your urologist. PRESCRIPTION ([place] May 06, 2016 01:59 LLDO) [place]: TABLET : 10 mg-325 mg : ORAL : Quantity: 1 Unit: tab(s) Route: ORAL Schedule: every 4 hours prn Dispense: 24 Unit: tab(s) May substitute. Refills: No Refills . Zofran ODT: TABLET, RAPID DISSOLVE : 4 mg : ORAL : Quantity: 1-2 Unit: tab(s) Route: ORAL Schedule: every 6 hours PRN Dispense: 12 Unit: tab(s) May substitute. Refills: 2 . NOTES: DISSOLVE UNDER TONGUE. IMAGING CT REPORT: Image captured from scanner. (SatMay 06, 2016 01:04 ADEA) Page 2 added. Image captured from scanner. (SatMay 06, 2016 01:04 ADEA) *EKG: Image captured from scanner. (SatMay 06, 2016 01:04 ADEA) RX: Image captured from scanner. (SatMay 06, 2016 02:07 JDEA) *DISCHARGE INSTRUCTIONS RECEIPT: Image captured from scanner. (SatMay 06, 2016 02:19 JDEA) &a-1R&a+25V*p+0X*q3452M*c202B*c15G*c2P*p-0X&a-25V&a+1R Name: Giovanni Hairston : 1950 M66 MedRec: [id number] AcctNum: [id number] Prepared: SatMay 06, 2016 18:53 by Interface Page 11 of 13 pMD [facility] EMERGENCY RECORD *SUPPLY CHARGE SHEET: Image captured from scanner. (SatMay 06, 2016 02:19 JDEA) ADMIN DIGITAL SIGNATURE: FRANK Valadez, Maverick. (SatMay 06, 2016 02:13 ADEA) MD Leonardo, Blake. (SatMay 06, 2016 18:46 LLDO) RESULTS (SatMay 06, 2016 00:23 ADEA) LABORATORY: Lipase Collection DT: [facility] May 05, 2016 23:59, Lipase 12 U/L, Range (8-78). Amylase Collection DT: [facility] May 05, 2016 23:59, Amylase 31 U/L, Range (25-125). Comprehensive Metabolic Panel Collection DT: [facility] May 05, 2016 23:59, Sodium 139 mmol/L, Range (136-145), Potassium 4.1 mmol/L, Range (3.5-5.1), Chloride 102 mmol/L, Range (98-107), Carbon Dioxide 25 mmol/L, Range (23-31), Anion Gap 16 mmol/L, Range (10-20), BUN (Urea Nitrogen) 14 mg/dL, Range (8.4-25.7), Creatinine 1.23 mg/dL, Range (0.7-1.3), Estimated GFR-MDRD 59 , Reference Range for Estimated GFR: Greater than 90, mL/min/1.73 m2 NOTE: The MDRD equation has not been validated for use, with the elderly (over 70 years of age), women, patients with, serious comorbid condition or persons with extremes of body size, muscle, mass, or nutritional status. , *Glucose 138 - H mg/dL, Range (80-115), Calcium 9.2 mg/dL, Range (7.8-10.44), Bilirubin, Total 0.3 mg/dL, Range (0.2-1.2), Protein, Total 7.2 g/dL, Range (5.8-8.1), NOTE: Plasma values are generally 0.3 to 0.5 g/dL higher than serum values, due to the presence of fibrinogen. , Albumin 4.1 g/dL, Range (3.4-4.8), Globulin 3.1 g/dL, Range (2.4-3.5), Alb/Glob Ratio 1.3 g/dL, Range (1.2-2.2), Alkaline Phosphatase 75 U/L, Range (40-150), AST (SGOT) 23 U/L, Range (5-34), ALT (SGPT) 37 U/L, Range (0-55). CRP (Inflammatory) Collection DT: [facility] May 05, 2016 23:59, CRP (Inflammatory) Less than 0.50 mg/dL, Range (= or < 0.5). Urine Microscopic Collection DT: [place] May 06, 2016 00:02, See comment below , Comment please do micro , *RBC/HPF 21-50 - H HPF, Range (0-3), WBC/HPF 0-3 HPF, Range (0-3), *Squamous Epithelial 4-6 - H HPF, Range (0-3), Bacteria/HPF Rare-Few HPF, Range (None Seen). Urinalysis w/ Rflx Microscopic Collection DT: [place] May 06, 2016 00:02, &a-1R&a+25V*p+0X*r3597V*c202B*c15G*c2P*p-0X&a-25V&a+1R Name: Giovanni Hairston : 1950 M66 MedRec: [id number] AcctNum: [id number] Prepared: [place] May 06, 2016 18:53 by Interface Page 12 of 13 pMD [facility] EMERGENCY RECORD See comment below , Comment please do micro , Color Yellow , Range (Yellow), Clarity Hazy , Range (Clear), Specific [place], Urine 1.024 , Range (1.002-1.036), pH, Urine 5.0 , Range (5.0-9.0), Leukocyte Negative , Range (Negative), Nitrite Negative , Range (Negative), Protein, Urine (Dipstick) Negative mg/dL, Range (Neg-Trace), Glucose, Urine (Dipstick) Negative mg/dL, Range (Negative), Ketone, Urine Negative mg/dL, Range (Negative), Urobilinogen 0.2 mg/dL, Range (0.2-1.0), Bilirubin Negative , Range (Negative), *Blood, Urine Moderate - H , Range (Negative). CBC with Differential Collection DT: [facility] May 05, 2016 23:59, White Blood Cell (WBC) Count 9.2 thou/uL, Range (4.8-10.8), *Red Blood Cell (RBC) Count 4.27 - L mill/uL, Range (4.70-6.10), *Hemoglobin 13.2 - L g/dL, Range (14.0-18.0), *Hematocrit 37.3 - L %, Range (42.0-52.0), Mean Corpuscular Volume 87.5 fl, Range (80.0-94.0), Mean Corpuscular Hemoglobin 31.0 pg, Range (27.0-31.0), Mean Corpuscular HGB CONC 35.5 g/dL, Range (32.0-36.0), *RBC Distribution Width 11.4 - L %, Range (11.5-14.5), Platelet Count 216 thou/uL, Range (130-400), *Mean Platelet Volume 6.4 - L fL, Range (7.4-10.4), %Neutrophils 74.8 %, Range (42.0-75.0), *%Lymphocytes 16.0 - L %, Range (21.0-51.0), %Monocytes 5.8 %, Range (0.0-10.0), %Eosinophils 2.7 %, Range (0.0-10.0), %Basophils 0.7 %, Range (0.0-1.0), *#Neutrophils 6.9 - H thou/uL, Range (1.40-6.50), #Lymphocytes 1.5 thou/uL, Range (1.20-3.40), #Monocytes 0.5 thou/uL, Range (0.11-0.59), #Eosinphils 0.2 thou/uL, Range (0.0-0.7), #Basophils 0.1 thou/uL, Range (0.0-0.2). Archibald: DRISS=FRANK Valadez, Maverick HANNA=FRANK Valadez, Peyton CONKLIN=MD Leonardo, Blake &a-1R&a+25V*p+0X*v7521Q*c202B*c15G*c2P*p-0X&a-25V&a+1R Name: Giovanni Hairston : 1950 M66 MedRec: [id number] AcctNum: [id number] Prepared: [place] May 06, 2016 18:53 by Interface Page 13 of 13 pMD [facility] MEDICATION RECONCILIATION You were seen in the Emergency Department on: Sat May 05, 2016 KNOWN ALLERGIES codeine MEDICATIONS GIVEN WHILE IN THE EMERGENCY DEPARTMENT Toradol injection (ketorolac tromethamine) - Dose: 30 milligram(s) : IV Push Zofran intravenous (ondansetron HCl) - Dose: 8 milligram(s) : IV Push sodium chloride 0.9 % intravenous (0.9 % sodium chloride) - Dose: 1 liter(s) : IV Fluid Infusion Duramorph (PF) (morphine sulfate/preservative free) - Dose: 4 milligram(s) : IV Push Duramorph (PF) (morphine sulfate/preservative free) - Dose: 4 milligram(s) : IV Push Ativan injection (lorazepam) - Dose: 0.5 milligram(s) : IV Push HOME MEDICATIONS CONTINUE PRESCRIBED gabapentin : CAPSULE : Strength - 300 mg : ORAL Continue as prescribed Patient had been takin tab(s) Oral 2 times a day (before meals). morphine : TABLET, EXTENDED RELEASE : Strength - 15 mg : ORAL Continue as prescribed Patient had been takin mg Oral 3 times a day. Kelso : TABLET : Strength - 7.5 mg-325 mg : ORAL Continue as prescribed Patient had been takin tab(s) Oral every 8 hours PRN. Notes from the emergency department Reviewed with family Reviewed with patient PRESCRIPTIONS (2) &a-1R&a+25V*p+0X*m2214U*c202B*c15G*c2P*p-0X&a-25V&a+1R Name: Giovanni Hairston Tenisha : 1950 M66 MedRec: [id number] AcctNum: [id number] Prepared: [place] May 06, 2016 18:53 by Interface pMD [facility] MEDICATION RECONCILIATION Printed (2) [place] : TABLET : 10 mg-325 mg : ORAL Quantity: 1, Unit: tab(s), Route: ORAL, Schedule: every 4 hours prn, Dispense: 24 Unit: tab(s) &a-1R&a+25V*p+0X*i0503C*c202B*c15G*c2P*p-0X&a-25V&a+1R Name: Giovanni Hairston Tenisha : 1950 M66 MedRec: [id number] AcctNum: [id number] Prepared: [place] May 06, 2016 18:53 by Interface pMD [facility]
--- NOTE | 2016-05-06 08:05 | CT ---
PRELIMINARY REPORT/[facility]/EMERGENCY AFTER HOURS PROCEDURE: EXAM: CT Abdomen and Pelvis Without Intravenous Contrast. CLINICAL HISTORY: 66 years old, male; Pain; Abdominal pain; Localized; Left lower quadrant (llq); TECHNIQUE: Axial computed tomography images of the abdomen and pelvis without intravenous contrast. Coronal reformatted images were created and reviewed. COMPARISON: No relevant prior studies available. FINDINGS: Lower thorax: Elevated right hemidiaphragm. ABDOMEN: Liver: Unremarkable. Gallbladder and bile ducts: Unremarkable. No calcified stones. No ductal dilation. Pancreas: Unremarkable. No ductal dilation. Spleen: Unremarkable. No splenomegaly. Adrenals: Unremarkable. No mass. Kidneys and ureters: Moderate left hydronephrosis secondary to 3.5 mm proximal ureteral stone. 2 mm left lower pole renal stone. Bilateral benign renal cysts. Stomach and bowel: Unremarkable. No obstruction. No mucosal thickening. Appendix: No findings to suggest acute appendicitis. PELVIS: Body wall: There is small, fat containing umbilical hernia. Bladder: Unremarkable. No stones. Reproductive: Unremarkable as visualized. ABDOMEN and PELVIS: Intraperitoneal space: Unremarkable. No free air. No significant fluid collection. Bones/joints: Chronic degenerative spinal changes without acute fracture or dislocation. 2.1 cm dens abdi sclerotic focus, right iliac bone, most likely bone island. Soft tissues: Unremarkable. Vasculature: There are atheromatous changes of the abdominal aorta without aneurysm. Lymph nodes: Unremarkable. No enlarged lymph nodes. IMPRESSION: Obstructing proximal left ureteral stone. Thank you for allowing us to participate in the care of your patient. Dictated and Authenticated by: Pretty Morrow MD 05/06/2016 12:54 AM Central Time ([place] \T\ [place]) FINAL REPORT EMERGENT AFTER HOURS CT OF THE ABDOMEN AND PELVIS WITHOUT CONTRAST: FINDINGS/IMPRESSION: I agree with the findings and impression given in the preliminary report per [facility] physician. 1. There is a small proximal left ureteral calcification with mild left-sided hydronephrosis. 2. There are hypodensities in the bilateral kidneys which likely represent cysts. POS: [facility]
--- NOTE | 2016-05-06 08:27 | RAD ---
SINGLE VIEW OF THE CHEST: COMPARISON: None. HISTORY: Abdominal pain. FINDINGS: A single view of the chest shows a normal size cardiomediastinal silhouette. There is elevation of the right hemidiaphragm. There is no evidence of consolidation, mass, or pleural effusion. Hardwar e is seen in the cervical spine. IMPRESSION: No evidence of acute cardiopulmonary disease. POS: [facility]
== END 2016-05-06 02:13 | disposition home or self-care (01) ==
LOC: MADERS 23:33
DX: N20.1 Calculus of ureter (principal); Z79.899 Other long term (current) drug therapy
CPT/HCPCS: 71010; 74176; 80053; 81003; 81015; 82150; 83690; 85025; 86140; 87086; 93005; 94760; 96361; 96374; 96375; J1885; J2060; J2270; J2405; J7050

== ENCOUNTER 2016-05-18 11:06 | Outpatient (CLI) | payer MEDICARE ==
--- NOTE | 2016-05-18 13:48 | RAD ---
TWO VIEWS OF THE CHEST: COMPARISON: 05/06/16. HISTORY: Cough. FINDINGS: Two views of the chest show normal sized cardiomediastinal silhouette. There is no evidence of conso lidation, mass, or pleural effusion. Hardware is seen in the cervical spine. IMPRESSION: No evidence of acute cardiopulmonary disease. POS: [facility]
== END 2016-05-18 11:07 | disposition home or self-care (01) ==
LOC: MADRAD 11:06
PROVIDERS: ATTEND General Practice
DX: R05 Cough (principal)
CPT/HCPCS: 71020

== ENCOUNTER 2016-06-04 09:27 | Outpatient (CLI) | payer MEDICARE ==
[2016-06-04] MEDS ORDERED: Iopamidol 370 76% 125 ML VIAL FS ONE (12:01)
[2016-06-04] MEDS ORDERED: Sodium Chloride 0.9% 100 ML BAG ONE (12:01)
--- NOTE | 2016-06-04 13:38 | CT ---
CT PULMONARY ANGIOGRAM WITH IV CONTRAST AND 3D POSTPROCESSING: Date: 06/04/16 HISTORY: 66-year-old male with dyspnea and elevated D-Dimer. FINDINGS: There is good opacification of the pulmonary arterial vasculature without filling defects to suggest pulmonary embolism. The thoracic aorta is well opacified without aneurysmal dissection. No pleural or pericardial effusions are seen. There is elevation of the right hemidiaphragm. There are mild dep endent changes in the posterior lung bases. There is diffusely decreased attenuation of the liver consistent with fatty infiltration. There is a 15.0 mm focus of a vascular blush in the lateral segment of the left lobe of the liver which may be due to a vascular anomaly, flash filling hemangioma, primary or secondary neoplastic disease. There are cysts in the visualized portions of the kidneys. There are degenerative changes in the spine. T here are postop changes and metallic hardware in the cervical and upper thoracic spine. IMPRESSION: 1. No CT evidence of pulmonary embolism or aortic dissection/aneurysm. 2. Focal area of increased vascularity in the left lobe of the liver as discussed above. POS: [facility]
== END 2016-06-04 09:28 | disposition home or self-care (01) ==
LOC: MADCT 09:27
PROVIDERS: ATTEND General Practice
DX: R06.00 Dyspnea, unspecified (principal); R79.1 Abnormal coagulation profile
CPT/HCPCS: 71275; J7050

== ENCOUNTER 2016-06-22 12:12 | Outpatient (CLI) | payer OTHER ==
[2016-06-22 12:54] LABS: ALT (SGPT) 30 U/L (0-55); AST (SGOT) 19 U/L (5-34); Albumin 3.9 g/dL (3.4-4.8); Alkaline Phosphatase 70 U/L (40-150); Bilirubin, Direct 0.2 mg/dL (0.1-0.3); Bilirubin, Total 0.5 mg/dL (0.2-1.2); Protein, Total 6.8 g/dL (5.8-8.1)
== END 2016-06-22 12:13 | disposition home or self-care (01) ==
LOC: MADLAB 12:12
PROVIDERS: ATTEND Anesthesiology
DX: M96.1 Postlaminectomy syndrome, not elsewhere classified (principal); G89.4 Chronic pain syndrome; Z79.891 Long term (current) use of opiate analgesic
CPT/HCPCS: 36415; 80076

== ENCOUNTER 2017-12-02 09:07 | Emergency (ER) | payer MEDICARE ==
[2017-12-02] MEDS ORDERED: Morphine 4 MG/ML VIAL ONE ×2 (09:38→10:07)
[2017-12-02 09:50] LABS: #Basophils 0.1 thou/uL (0.0-0.2); #Eosinphils 0.4 thou/uL (0.0-0.7); #Lymphocytes 1.2 thou/uL (1.20-3.40); #Monocytes 0.4 thou/uL (0.11-0.59); #Neutrophils 4.3 thou/uL (1.40-6.50); %Basophils 1.4 % (0.0-1.0); %Eosinophils 6.2 % (0.0-10.0); %Lymphocytes 19.4 % (21.0-51.0); %Monocytes 5.6 % (0.0-10.0); %Neutrophils 67.4 % (42.0-75.0); Hemoglobin 11.9 g/dL (14.0-18.0); Mean Corpuscular HGB CONC 34.7 g/dL (32.0-36.0); Mean Corpuscular Hemoglobin 30.3 pg (27.0-31.0); Mean Corpuscular Volume 87.3 fL (78.0-98.0); Mean Platelet Volume 5.9 fL (7.4-10.4); Platelet Count 209 thou/uL (130-400); Red Blood Cell (RBC) Count 3.92 mill/uL (4.70-6.10); White Blood Cell (WBC) Count 6.4 thou/uL (4.8-10.8)
[2017-12-02 09:57] LABS: Bilirubin Negative (Negative); Blood, Urine Large (Negative); Clarity Cloudy (Clear); Glucose, Urine (Dipstick) Negative (Negative); Leukocyte Negative (Negative); Nitrite Negative (Negative); Protein, Urine (Dipstick) 30 mg/dL (Neg-Trace); Specific Gravity, Urine 1.025 (1.005-1.030); Urobilinogen 0.2 mg/dL (0.2-1.0)
[2017-12-02 09:58] LABS: RBC/HPF GREATER THAN 50-TNTC HPF (0-3)
[2017-12-02 10:00] LABS: Anion Gap 16 mmol/L (10-20); BUN (Urea Nitrogen) 21 mg/dL (8.4-25.7); Calc. Creatinine Clearance 0 mL/min (70-130); Carbon Dioxide 23 mmol/L (23-31); Chloride 109 mmol/L (98-107); Estimated GFR-MDRD 52; Glucose 114 mg/dL (80-115); Potassium 4.6 mmol/L (3.5-5.1); Sodium 143 mmol/L (136-145); Squamous Epithelial 0-3 HPF (0-3); Transitional Epithelial 0-3 HPF (0-3); WBC/HPF None Seen HPF (0-3)
[2017-12-02 10:01] LABS: Bacteria/HPF Rare-Few HPF (None Seen); Crystals/HPF 2+ AMORPH URATES HPF (Negative)
[2017-12-02] MEDS ORDERED: Tamsulosin HCl 0.4 MG CAP ONE (10:07)
[2017-12-02] MEDS ORDERED: Ketorolac Tromethamine 30 MG/ML VIAL ONE (10:07)
--- NOTE | 2017-12-02 10:32 | CT ---
CT OF THE ABDOMEN AND PELVIS WITHOUT CONTRAST: INDICATION: History of low midline abdominal pain radiating to the penis after lifting a water heater yesterday. COMPARISON: Prior exam dated 05/06/16. FINDINGS: Focal eventration of the right hemidiaphragm is stable. Mild right bibasilar atelectasis is similar. Scattered calcified lymph nodes within the left hilar region are similar. Hypodensities involving both kidneys suspicious for cysts are stable. There is a tiny 1-2 mm calculus within the inferior pole of the right kidney. There is a small 1 mm calculus within the mid aspect of the right kidney. There is slight prominence of the left renal pel vis and left renal collecting system without evidence of an obstructing stone. There is mild periure teral inflammatory stranding involving the left ureter. Tidwell catheter is seen within the decompress ed bladder. Small suspected intraluminal stone is seen on the left of the bladder measuring 2.7 mm. The colon is decompressed. There is a normal appendix in the right lower quadrant. The small bowel is normal-appearing. Scattered degenerative and osteoarthritic change. Scattered bone islands within the pelvis and lumbar spine appear stable. IMPRESSION: 1. Mild prominence of the left renal collecting system without a visible ureteral stone. There is m ild periureteral stranding involving the left renal collecting system. Findings likely reflect seque lae of a recently passed stone. There is a small suspected stone seen within the lower portion of a decompressed bladder that is adjacent to the Tidwell catheter measuring approximately 2.7 mm. 2. Bilateral nephrolithiasis and bilateral renal cysts. 3. Stable focal eventration of the right hemidiaphragm with a mild right basilar atelectasis. 4. Scattered punctate regions of sclerosis involving the pelvis and lumbar spine suspicious for mult iple small bone islands. The bone islands within the thoracolumbar spine appear stable to a comparis on CT dated back to 2012. POS: [facility]
== END 2017-12-02 10:58 | disposition home or self-care (01) ==
LOC: MADERS 09:07
DX: N20.0 Calculus of kidney (principal); Z79.899 Other long term (current) drug therapy
CPT/HCPCS: 51702; 74176; 80048; 81003; 81015; 85025; 96374; 96375; 96376; J1885; J2270

== ENCOUNTER 2021-08-11 11:14 | Outpatient (CLI) | payer OTHER | END 2021-08-11 11:15 | disposition home or self-care (01) | LOC: MADRAD 11:14 | PROVIDERS: ATTEND Neurological Surgery | DX: M47.26 Other spondylosis with radiculopathy, lumbar region (principal); Z98.1 Arthrodesis status; Z98.890 Other specified postprocedural states | CPT/HCPCS: 72100 ==